=== PATIENT | male | born 1990 | race Caucasian/White ===

== ENCOUNTER 2020-01-12 12:03 | Outpatient (NON) | payer OTHER, SELFPAY ==
[2020-01-13 06:44] LABS: SARS-CoV-2 RNA PCR Negative
== END 2020-01-12 12:04 ==
LOC: ANHCOVIDDT 12:05
PROVIDERS: Visit Provider Nurse Practitioner Family
DX: Z20.828 Contact with and (suspected) exposure to other viral communicable diseases (principal)
CPT/HCPCS: 87635; C9803; U0003

== ENCOUNTER 2020-03-27 12:13 | Outpatient (NON) | payer OTHER, SELFPAY ==
[2020-03-28 00:37] LABS: SARS-CoV-2 RNA PCR Negative
== END 2020-03-27 12:14 ==
LOC: ANHCOVIDDT 12:15
PROVIDERS: Visit Provider Nurse Practitioner Family
DX: Z20.822 Contact with and (suspected) exposure to COVID-19 (principal)
CPT/HCPCS: C9803; U0003; U0005

== ENCOUNTER 2022-01-30 08:16 | Emergency (ER) | payer OTHER, SELFPAY ==
--- NOTE | 2022-01-30 08:23 | ED.URI ---
HPI - URI/Sore Throat General Chief Complaint: Upper Respiratory Infection Stated Complaint: Cough Time Seen by Provider: 01/30/22 08:23 Source: patient and RN notes reviewed History of Present Illness HPI Narrative: patient is a 31-year-old male who presents to urgent care with complaints of persistent cough status post influenza a last week. Patient states he is now worse. Patient does have a history of asthma and has been using his inhaler as well as DayQuil, NyQuil and ibuprofen. Patient has not had any recent fevers. Denies any nausea or vomiting. No other acute complaints. No acute distress noted. Patient aware of the plan of care. Some parts of this dictation were generated by voice recognition software and may contain typographical and/or grammatical inaccuracies. Related Data Home Medications Medication Instructions Recorded Confirmed albuterol sulfate 90 mcg/actuation inhalation 01/30/22 aerosol inhaler beclomethasone dipropionate 40 inhalation 01/30/22 mcg/actuation HFA breath activated aerosol (Qvar RediHaler) Allergies Allergy/AdvReac Type Severity Reaction Status Date / Time No Known Allergies Allergy Verified 01/30/22 08:30 Review of Systems Review of Systems: CONSTITUTIONAL: Denies fever, chills, or sweats. EYES: Denies visual changes, redness, or discharge. ENT: reports of hoarse voice and mild congestion CARDIOVASCULAR: Denies chest pain, palpitations, or edema. RESPIRATORY: Reports a persistent dry cough with intermittent dyspnea GASTROINTESTINAL: Denies abdominal pain, nausea, vomiting, or diarrhea. GENITOURINARY: Denies dysuria or hematuria. SKIN: Denies rash or itching. MUSCULOSKELETAL: Denies back pain, joint pain, or myalgia. NEUROLOGIC: Denies headache, numbness, or weakness. All other systems reviewed are negative, except as documented in HPI. PMFSH Comments At the time of my signature, I reviewed and agree with the nursing past medical, surgical, social, and family history. There is no relevant family history pertinent to the patient complaint. Exam Narrative: GENERAL: This is a well-nourished, well-developed patient, in no apparent distress. HEAD: normocephalic, atraumatic. EYES: PERRL. Sclera clear/white. Vision is grossly intact. EARS: External ears normal, auditory canals clear and without drainage, TMs normal without perforation. Hearing grossly intact. NOSE: External nose normal with no obvious nasal discharge, nares without redness, no rhinorrhea. THROAT: Mucous membranes moist, posterior pharynx clear. Moderate postnasal drainage with hoarse voice NECK: Neck supple, non-tender without lymphadenopathy CARDIOVASCULAR: Regular rate and rhythm without murmurs, gallops, or rubs. RESPIRATORY: persistent harsh cough noted on exam.Clear to auscultation. Breath sounds equal bilaterally. No wheezes, rales, or rhonchi. SKIN: warm, intact with no suspicious lesions or rash, good texture and turgor. NEURO: awake, alert, and oriented to person, place and time. There were no obvious focal neurologic abnormalities. EXTREMITIES: No clubbing, cyanosis, or edema. Course Course Level of Care: Express Care Visit Vital Signs Vital signs: Vital Signs Temperature 97.8 F 01/30/22 08:25 Pulse Rate 100 01/30/22 08:25 Respiratory Rate 16 01/30/22 08:25 Blood Pressure 133/96 H 01/30/22 08:25 Pulse Oximetry 98 01/30/22 08:25 Oxygen Delivery Room Air 01/30/22 08:25 Temperature 97.8 F 01/30/22 08:25 Pulse Rate 100 01/30/22 08:25 Respiratory Rate 16 01/30/22 08:25 Blood Pressure 133/96 H 01/30/22 08:25 Pulse Oximetry 98 01/30/22 08:25 Oxygen Delivery Room Air 01/30/22 08:25 reviewed- Patient is informed that they may have pre-hypertension or hypertension based on a blood pressure reading in the department. I recommend the patient call the primary care provider listed on their discharge instructions or a physician of their choice thi
[2022-01-30 08:25] VITALS: BP 133/96; PULSE 100; RESP 16; TEMP 36.6; O2SAT 98
== END 2022-01-30 08:55 | disposition home or self-care (01) ==
PROVIDERS: Emergency Provider Nurse Practitioner Family
DX: R05.9 Cough, unspecified (principal); J45.909 Unspecified asthma, uncomplicated
CPT/HCPCS: 99213; G0463